=== PATIENT | female | born 1955 | race Caucasian/White ===

== ENCOUNTER 2020-07-02 10:05 | Emergency (ER) | payer MEDICARE, BC ==
[~2020-07-02] VITALS: Ht 167.6 cm; Wt 56.7 kg
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
--- NOTE | 2020-07-02 10:40 | NUR ---
Dr. Rosario at bedside
[2020-07-02] MEDS ORDERED: KETOROLAC TROMETHAMINE 30 MG INJ IM ONE (11:00)
--- NOTE | 2020-07-02 11:27 | NUR ---
Pt. left for CT
--- NOTE | 2020-07-02 11:40 | NUR ---
Pt. returned to CT
[2020-07-02] MEDS ORDERED: ACET325T53 PO (12:40)
--- NOTE | 2020-07-02 12:59 | NUR ---
Patient discharged to home in stable condition. Written and verbal after care instructions given. Patient verbalizes understanding of instructions. Stressed follow up or return to ER for worsening s/s. Pt. walks with steady gait. Pt denies dizziness, headache. Pt. states she feels better. Pt. instructed to follow up with primary care provider.
[2020-07-02 13:00] VITALS: BP 118/63
== END 2020-07-02 13:01 | disposition home or self-care (01) ==
LOC: ER 10:05
DX: S13.4XXA Sprain of ligaments of cervical spine, initial encounter (principal); V49.40XA Driver injured in collision with unspecified motor vehicles in traffic accident, initial encounter; Y92.414 Local residential or business street as the place of occurrence of the external cause; E04.1 Nontoxic single thyroid nodule; Z91.040 Latex allergy status; M50.322 Other cervical disc degeneration at C5-C6 level
CPT/HCPCS: 72125; 96372; 99284; J1885; A4663